=== PATIENT | male | born 1960 | race Caucasian/White ===

== ENCOUNTER 2017-01-02 08:09 | Day surgery (SDC) | payer OTHER ==
[2016-12-28 00:53] VITALS: BMI 31.9
[2017-01-02] MEDS ORDERED: Midazolam 2 MG/2 ML VIAL ONE (10:16)
[2017-01-02] MEDS ORDERED: Propofol 10 mg/ml Inj (20 ML) ONE (10:17)
[2017-01-02] MEDS ORDERED: Bupivacaine/Epi 0.25%-1:200,000 10 ml PF inj IJ ONE (10:18)
[2017-01-02] MEDS ORDERED: Lidocaine 1% Inj (20ml) ONE (10:19)
[2017-01-02] MEDS ORDERED: cefOXitin IV 1 gm in Dextrose 1 GM/50 ML BAG IVPB ONE (10:19)
[2017-01-02] MEDS ORDERED: Lactated Ringer's 1,000 ML IV ONE ×2 (10:25→12:10)
[2017-01-02] MEDS ORDERED: Oxycodone/Acetaminophen 5/325 mg Tab PO PRN (12:30)
--- NOTE | 2017-01-02 12:30 | PCM.SURG1 ---
Surgeon's Initial Post Op Note - Surgeon's Notes Surgeon: Dr Morales City Councilman: Dr Amador PGY2, Dina Taylor DROP FORGE OPERATOR Type of Anesthesia: General Endo Pre-Operative Diagnosis: cholelithiasis Operative Findings: as above Post-Operative Diagnosis: as above Operation Performed: robotic cholecystectomy Specimen/Specimens Removed: gallbladder Estimated Blood Loss: EBL {In ML}: 50 Blood Products Given: N/A Drains Used: No Drains Post-Op Condition: Good Date of Surgery/Procedure: 01/02/17 Time of Surgery/Procedure: 12:30
[2017-01-02] MEDS ORDERED: HYDROmorphone 0.5 mg/0.5 ml ISec IVP PRN (12:31)
[2017-01-02 14:52] VITALS: BP 113/66; PULSE 70; RESP 18; TEMP 97.2; O2SAT 100
--- NOTE | 2017-01-05 09:17 | OP ---
PROCEDURE DATE: 01/02/2017 PREOPERATIVE DIAGNOSES: Acute cholecystitis with cholelithiasis. POSTOPERATIVE DIAGNOSES: 1. Acute on chronic cholecystitis. 2. Cholelithiasis. 3. Extensive post-inflammatory adhesion in right lower quadrant. PROCEDURE DONE: 1. Robotic Cholecystectomy 2. Robotic Extensive Lysis of adhesions SURGEON: Skip Morales MD GR[employer] 7 AND [employer] VISITING TEACHER: NIESHA Bermudez ANESTHESIA: General endotracheal tube anesthesia. ESTIMATED BLOOD LOSS: Around 20 mL. DRAINS: None. COMPLICATIONS: None. INTRAOPERATIVE FINDINGS: Patient was found to have extensive postinflammatory adhesion. Pt has Acute on Chronic Cholecystitis with Cholelithiasis. INTRAOPERATIVE STEPS: This is a 56-year-old male who was diagnosed with acute cholecystitis and cholelithiasis and patient symptomatically improved, and patient was consented for laparoscopic assisted robotic cholecystectomy, possible open. Brought to the OR, placed supine on the operating table. After induction of the anesthesia, the abdomen was prepped and draped in a usual sterile fashion and a supraumbilical transverse 1.5 cm incision was made. After incising skin and subcutaneous tissue, the fascia was incised and the camera port was placed. Another two 8 mm ports were placed in the left upper quadrant and right upper quadrant. After the grasper and hook was introduced, through the console the dissection of the Calot's triangle was done. The patient was found to have extensive postinflammatory adhesion. With blunt and sharp dissection, the cystic duct and cystic artery were identified. Intraoperative Firefly was used to confirm the anatomy, and cystic duct and cystic artery were clipped at 3 places and cut in between 2 clips near the gallbladder, and gallbladder was dissected free from the gallbladder fossa, taken in EndoCatch bag, taken out through the umbilical port site and sent off the table for pathology at the end of the procedure. Now, the suction irrigation of the gallbladder fossa as well as perihepatic area was done, and all the fluid and blood was suctioned out. After proper hemostasis, all the instruments were taken out, the robot was undocked. All the ports were taken out under vision. Pneumo was deflated. The umbilical port site was closed in 2 layers after removing the specimen, the fascia with 0 Vicryl interrupted suture, skin with a 4-0 Monocryl and dry sterile dressing was applied. The patient tolerated the procedure well. Count of instruments and gauze was correct. There was no apparent complication. Skip Morales MD cc: [id number] TT: 01/02/2017 12:52:32 babak JULIEN
== END 2017-01-02 15:39 | disposition home or self-care (01) ==
LOC: C.SDS 08:09
PROVIDERS: ATTEND Surgery Surgical Critical Care
DX: K80.12 Calculus of gallbladder with acute and chronic cholecystitis without obstruction (principal); K66.0 Peritoneal adhesions (postprocedural) (postinfection)
CPT/HCPCS: 47562; 88304; J0694; J1170; J1885; J2001; J2250; J2405; J2704; J3010; J7030; J7120; S2900